=== PATIENT | female | born 1985 | race Caucasian/White ===

== ENCOUNTER 2016-10-11 01:11 | Emergency (ER) | payer BC ==
[2016-10-11 02:20] LABS: CALCIUM 7.9 mg/dL (8.5-10.1); CARBON DIOXIDE 24.9 mmol/L (21-32); CHLORIDE SERUM 103 mmol/L (98-107); CREATININE SERUM 0.9 mg/dL (0.6-1.0); GFR1 > 60 mL/min; GLUCOSE SERUM 108 mg/dL (74-106); SODIUM SERUM 139 mmol/L (136-145)
[2016-10-11 02:22] LABS: PLATELET COUNT 337 x10^3mcL (130-400); RED CELL DISTRIBUTION WIDTH 11.7 % (11.5-14.5)
[2016-10-11 02:24] LABS: BASOPHIL % 2.1 % (0-2)
[2016-10-11 02:32] LABS: ALBUMIN 3.5 g/dL (3.4-5.0); ALKALINE PHOSPHATASE 51 U/L (46-116); ALT/SGPT 21 U/L (14-59); AST/SGOT 17 U/L (15-37); BILIRUBIN TOTAL 0.2 mg/dL (0.20-1.00); T4(THYROXINE) 10.9 ug/dL (4.7-13.3); TOTAL PROTEIN, SERUM 6.6 g/dL (6.4-8.2)
[2016-10-11 02:36] LABS: AMPHETAMINE QUAL UR NONE DETECTED (NEG <=1000)
[2016-10-11 03:50] VITALS: BP 129/71
== END 2016-10-11 03:50 | disposition home or self-care (01) ==
LOC: ED 01:11
PROVIDERS: Emergency Medicine
DX: E87.6 Hypokalemia (principal); R07.89 Other chest pain; T50.991A Poisoning by other drugs, medicaments and biological substances, accidental (unintentional), initial encounter; Y92.89 Other specified places as the place of occurrence of the external cause; Z88.6 Allergy status to analgesic agent
CPT/HCPCS: 83880; J2060; J7030

== ENCOUNTER 2016-12-05 01:21 | Emergency (ER) | payer BC ==
[2016-12-05 03:48] VITALS: BP 121/86
== END 2016-12-05 03:40 | disposition home or self-care (01) ==
LOC: ED 01:21
DX: R00.2 Palpitations (principal); R07.9 Chest pain, unspecified; R06.02 Shortness of breath; Z79.1 Long term (current) use of non-steroidal anti-inflammatories (NSAID); Z79.899 Other long term (current) drug therapy; Z88.6 Allergy status to analgesic agent
CPT/HCPCS: Q0092